=== PATIENT | female | born 1990 | race Caucasian/White ===

== ENCOUNTER → 2019-04-06 02:35 | Observation (INO) ==
[2019-04-06 02:09] LABS: Basophils % 0.4 %; Eosinophils # 0.1 K/mcL (0.0-0.6); Eosinophils % 1.4 %; Hematocrit 37.2 % (35.3-44.9); Hemoglobin 12.8 g/dL (11.5-15.4); Immature Granulocytes % 0.8 % (0-4); Lymphocytes # 1.7 K/mcL (0.6-4.6); Lymphocytes % 16.8 %; Mean Corpuscular HGB Conc 34.4 g/dL (31.6-35.5); Mean Corpuscular Hemoglobin 33.2 pg (28.0-33.3); Mean Corpuscular Volume 96.4 fL (83.0-100.0); Mean Platelet Volume 10.4 fL (9.4-12.4); Monocytes # 0.9 K/mcL (0.0-1.3); Monocytes % 8.3 %; Neutrophils # 7.5 K/mcL (1.6-8.9); Platelet Count 252 K/mcL (140-400); Red Blood Count 3.86 M/mcL (3.82-4.97); Red Cell Distribution Width 12.4 % (11.5-14.5); Segmented Neutrophils % 72.3 %; White Blood Count 10.4 K/mcL (4.3-11.1)
[2019-04-06 02:17] LABS: Amphetamine Screen,Urine Negative ng/mL (Cutoff=1000); Barbiturate Screen,Urine Negative ng/mL (Cutoff=200); Benzodiazepines Screen,Urine Negative ng/mL (Cutoff=200); Cannabinoid Screen,Urine Negative ng/mL (Cutoff = 50); Cocaine Screen,Urine Negative ng/mL (Cutoff= 300); Opiate Screen,Urine Negative ng/mL (Cutoff=300); Phencyclidine Screen,Urine Negative ng/mL (Cutoff=25); Protein/Creatinine Ratio,Urine 0.17 mg/mg (0.00-0.20)
[2019-04-06 02:27] LABS: Alanine Aminotransferase 8 Units/L (7-52); Aspartate Amino Transferase 14 Units/L (13-39); BUN/Creatinine Ratio 13 (6-26); Blood Urea Nitrogen 7 mg/dL (6-20); Lactate Dehydrogenase 154 Units/L (140-271); Uric Acid 4.9 mg/dL (2.3-7.6); eGFR For African Americans > 60 (> 60); eGFR For Non-African Americans > 60 (> 60)
--- NOTE | 2019-04-06 02:33 | OB/GYN Progress Note ---
Date of Encounter: 04/06/19 Time of Encounter: 02:29 - Assessment and Plan (1) 37 weeks gestation of Current Visit: Yes Status: Acute Reactive NST Serial blood pressures normal Pre-E labs normal Discharge home with Pre-E precautions and Labor precautions Follow up in office as scheduled and PRN POC per consult with Dr Rogers (2) NST (non-stress test) reactive Current Visit: Yes Status: Acute Subjective - Subjective Principal diagnosis: Elevated BP at home Interval history: Ms Mendoza is a at roughly 37 weeks gestation that presents to triage after having elevated blood pressures at home this evening. She states that she was not feeling well earlier and that her baby had felt strange all day. She was vague on her symptoms. She states her blood pressure around 11 pm was 140/90 and her repeat an hour later was 160/110. She denies headache, vision changes, epgastric pain, leaking of fluid, vaginal bleeding, and vaginal discharge. She states positive movement. She is seen by Dr Wayne for her care. Antepartum ROS: movement normal, no vaginal bleeding, no contractions Objective - Vital Signs Vital Signs: Intake and Output 04/05/19 04/05/19 04/06/19 15:59 23:59 07:59 Other: Weight 112.2 kg Patient Weight 04/06/19 23:59 Weight 112.2 kg - Exam FHR: category 1 FHR comments: Baseline 110-115 with moderate variability and 15 x 15 accels. No decels. No contractions per palpation, patient report, or toco Abdomen: Present: normal appearance, soft, gravid Uterus: Present: normal. Absent: firm - Labs Labs: Abnormal lab results 0.52 mg/dL (0.60-1.20) L 04/06/19 01:42
== END | disposition home or self-care (01) ==
LOC: 1NENULAB
PROVIDERS: ADMIT Advanced Practice Midwife; ATTEND Advanced Practice Midwife

== ENCOUNTER 2019-04-16 05:43 | Inpatient (IN) ==
[2019-04-16] MEDS ORDERED: Famotidine 20 MG/2 ML VIAL IVP PRN (05:52)
[2019-04-16] MEDS ORDERED: Ondansetron 4 MG/2 ML VIAL IVP PRN (05:52)
[2019-04-16] MEDS ORDERED: *HR* Nalbuphine 10 MG/ML AMPUL IVP PRN (05:52)
[2019-04-16] MEDS ORDERED: Metoclopramide 10 MG/2 ML VIAL IVP PRN (05:52)
[2019-04-16] MEDS ORDERED: Naloxone 0.4 MG/ML INJ IVP PRN (05:52)
[2019-04-16] MEDS ORDERED: Oxytocin 20 units/ LR 1000 mL 20 UNIT/1,000 ML BAG IVC SCH ×2 (06:00→19:55)
[2019-04-16] MEDS ORDERED: Ringers Solution, Lactated 1,000 ML IVC SCH (06:00)
[2019-04-16 06:16] LABS: Basophils % 0.3 %; Eosinophils % 2.4 %; Hematocrit 38.1 % (35.3-44.9); Hemoglobin 12.9 g/dL (11.5-15.4); Immature Granulocytes % 0.6 % (0-4); Lymphocytes % 17.5 %; Mean Corpuscular HGB Conc 33.9 g/dL (31.6-35.5); Mean Corpuscular Hemoglobin 32.7 pg (28.0-33.3); Mean Corpuscular Volume 96.5 fL (83.0-100.0); Mean Platelet Volume 10.1 fL (9.4-12.4); Monocytes % 8.6 %; Platelet Count 249 K/mcL (140-400); Red Blood Count 3.95 M/mcL (3.82-4.97); Red Cell Distribution Width 12.4 % (11.5-14.5); Segmented Neutrophils % 70.6 %; White Blood Count 9.3 K/mcL (4.3-11.1)
[2019-04-16 06:17] LABS: Eosinophils # 0.2 K/mcL (0.0-0.6); Lymphocytes # 1.6 K/mcL (0.6-4.6); Monocytes # 0.8 K/mcL (0.0-1.3); Neutrophils # 6.5 K/mcL (1.6-8.9)
--- NOTE | 2019-04-16 06:25 | Anesthesia Evaluation PreOp ---
Date of Encounter: 04/16/19 Time of Encounter: 06:29 - Past History Planned Operation: Del, 39wk term induction Cardiac History: Denies any Significant Hx Pulmonary History: Denies Any Significant HX PAINT TRIMMER PIPE BOWLS History: Denies Any Significant HX Other Medical History: Other (MO BMI 34, occ sciatic not positionally dependent has improved with .) Anesthesia History: No Prior Anesthetic Complications, Past Anesthesia (previous epidural without comp) Alcohol Use: none Drug use: none Medications and Allergies Ferrous Sulfate 1 tab PO DAILY 04/06/19 [History] Caplet 1 tab PO DAILY 04/06/19 [History] Allergy/AdvReac Type Severity Reaction Status Date / Time No Known Allergies Allergy Verified 04/06/19 01:48 Anesthesia Results - Labs 04/16/19 06:05 Anesthesia Exam - HEENT Pupil (Motor): Pupils equal Mallampati: II Teeth: Normal Oral Opening: Greater than 3 - PAINT TRIMMER PIPE BOWLS LOC: Oriented PAINT TRIMMER PIPE BOWLS Motor: Normal RUE, Normal LUE, Normal RLE, Normal LLE, Normal Face - Cardiac Rhythm: Regular Murmur: None - Pulmonary Breath Sounds: bilateral Clear Respiratory Effort: Symmetrical Anesthesia Assess/Plan ASA Score: 2 Level of consciousness: Cooperative, Oriented Anesthetic Plan: General, Spinal, Epidural Monitoring Plan: Standard Monitors Recovery Plan: PACU
[2019-04-16] MEDS ORDERED: Epidural Premix (fent/bupiv) 110 ML EP SCH (06:30)
--- NOTE | 2019-04-16 08:09 | OB/GYN History & Physical ---
Date of Encounter: 04/16/19 Time of Encounter: 08:07 Assessment and Plan (1) 39 weeks gestation of Current visit: Yes Status: Acute History of Present Illness Chief complaint: induction HPI: Ms. Mendoza is a 29 year old female at 39 weeks who presents to labor and delivery for induction of labor. On presentation she is 3 cm 70% effaced and -2 station. Patient is category 1. She is doing well and without complaints today. She has no drug allergies. Currently on vitamins. She has no chronic medical conditions. Surgical history is negative. She has no history of abnormal Pap smears, STDs or pelvic infections. Socially she denies tobacco, alcohol, illicit drug use. Obstetric history significant for one term vaginal delivery and found located. Family history significant for hypertension, diabetes and mental illness. Past Med Surg Social Fam HX - Past Medical History Additional medical history: PTL Psychiatric history: no psych history - Past Surgical History Surgical History: no surgical history - Social History Smoking Status: Former smoker Smokeless Tobacco Status: No Alcohol use: none Drug use: none - Family History Mother Adopted: No Family Member Ethnicity: Non- Living Status: Still Living Hx Family Cardiac Disorders: Yes Hx Family Respiratory Disorders: No Hx Family Cancer: No Hx Family GI Disorders: No Hx Family Genitourinary Disorders: No Hx Family Endocrine Disorder: No Hx Family Musculoskeletal Disorders: No Hx Family Neuromuscular Disorders: No Hx Family Neurologic Disorders: No Hx Family HEENT Disorders: No Hx Family Autoimmune Disorders: No Hx Family Reproductive Disorders: No Hx Family Psychosocial Disorders: No Hx Family Medical Disorders: No Obstetrical History - Pregnancies : 2 Para: 1 Term: 1 Livin Medications and Allergies Ferrous Sulfate 1 tab PO DAILY 04/06/19 [History] Caplet 1 tab PO DAILY 04/06/19 [History] Allergy/AdvReac Type Severity Reaction Status Date / Time No Known Allergies Allergy Verified 04/06/19 01:48 Review of System OB All systems PM: reviewed and no additional remarkable complaints except as s tated Exam - Constitutional Constitutional: well developed, well nourished, no acute distress, average body habitus - HEENT HEENT: EOMI, PERRL, Normocephaly - Neck Neck exam: full ROM - Lungs Respiratory exam: CTAB - Cardiovascular Cardiovascular exam: RRR - Abdomen Abdomen: Present: bowel sounds normal, gravid, non tender - Extremities Extremities exam: full ROM, normal inspection - Cervix Dilation: 3 Effacement: 70 Station: -2 - Uterus Uterus exam: Present: normal size Results Result Diagrams: 04/16/19 06:05 All other labs normal. - VTE Reasons for not Prescribing Prophylaxis: Treatment not Indicated - Low risk for VTE
[2019-04-16 08:21] LABS: Amphetamine Screen,Urine Negative ng/mL (Cutoff=1000); Barbiturate Screen,Urine Negative ng/mL (Cutoff=200); Benzodiazepines Screen,Urine Negative ng/mL (Cutoff=200); Cannabinoid Screen,Urine Negative ng/mL (Cutoff = 50); Cocaine Screen,Urine Negative ng/mL (Cutoff= 300); Opiate Screen,Urine Negative ng/mL (Cutoff=300); Phencyclidine Screen,Urine Negative ng/mL (Cutoff=25)
--- NOTE | 2019-04-16 10:42 | Event Note ---
Date of Encounter: 04/16/19 Time of Encounter: 10:40 Patient doing well. Contractions every 2-4 minutes. Cervical exam unchanged. I discussed Wu induction with patient. She would like to do this. A 60 mL Wu was placed without difficulty. Patient will continue with Pitocin. Patient wishes epidural. Category 1 tracing.
[2019-04-16] MEDS ORDERED: *HR* FentaNYL (PF) 100 MCG/2 ML VIAL EP ONE (10:46)
[2019-04-16] MEDS ORDERED: Ropivacaine/PF 0.2% 20 ML VIAL EP ONE (10:46)
--- NOTE | 2019-04-16 11:16 | Anesthesia Procedures ---
Date of Encounter: 04/16/19 Time of Encounter: 11:14 Procedures: Anesthesia - Epidural/Spinal Patient ID/Chart reviewed: Yes Patient examined: Yes OB Eval: Gestational age: 39 OB Eval: : 2 OB Eval: Hx Para: 1 OB Eval: Dilated at (cm): 3 OB Eval: Contractions: Non-stressed pattern Consent Obtained: Yes Supplemental Oxygen: None/Room Air Site Prep: Aseptic Technique, Sterile prep and drape, 0.5% Chlorhexidine/Alcohol Patient position: upright Local Anesthetic: Lidocaine 1% Touhy Needle Gauge: 18 Touhy Needle Depth (cm): 7 Catheter Depth at Skin (cm): 15 Test Dose (1.5% Lido + Epi): Volume given (mls): 3 Test Dose Result: Negative Loading Dose: Fentanyl (mcg): 100 Loading Dose: Other: ropivacaine 0.2% 5cc Loading Dose Administered: Thru Touhy Needle Infusion Med: 0.125% Bupivacaine w/ 2 mcg/ml Fentanyl Infusion Rate (mls/hr): 15 (pcea 5cc q30") Catheter Secured in Place: Tegaderm Interspace Used: L2-L3 Loss of Resistance (DOC): Yes Blood: No CSF: No Paresthesia: No Procedure: aseptic, tolerated well, VSS, effective Vitals + FHT's: 143/88 68 16 fht 124
--- NOTE | 2019-04-16 13:15 | Event Note ---
Date of Encounter: 04/16/19 Time of Encounter: 13:14 Patient doing well with epidural. Vaginal exam performed. Wu is now out. Cervix is 7 cm 80% effaced and a 0 to -1 station. Bulging bag of membranes noted. Artificial rupture membranes was performed with clear fluid being noted. Category 1 tracing. We will continue Pitocin. Expectant management
[2019-04-16] MEDS ORDERED: *HR* FentaNYL (PF) 100 MCG/2 ML VIAL ONE (16:27)
[2019-04-16] MEDS ORDERED: Lidocaine/EPI 1:200k 2% PF 20 ML VIAL ONE (16:28)
--- NOTE | 2019-04-16 16:48 | Anesthesia Progress Note ---
Date of Encounter: 04/16/19 Time of Encounter: 16:30 Anesthesia Note - Note Note: 04/16/19 16:46 called to LDR 8 for increasing pain with contractions, 10/10, tearful. Negative aspiration. Dosed with 5ml 2% lidocaine with epi and 100mcg fentanyl over 10 mins. with decreasing pain verbalized. Reports as 4/10, pressure only. VSS and FHTs stable.
--- NOTE | 2019-04-16 17:32 | OB/GYN Procedure Note ---
Delivery - Delivery Date: 04/16/19 Provider: José Miguel Wanye Intrapartum events: none Delivery induction: oxytocin, hicks Delivery augmentation: rupture of membranes Delivery monitor: external FHT, external uterine Anesthesia: epidural Quantitated Blood Loss: 200 - Infant (s) Infant A Delivery Date: 04/16/19 Delivery Time: 17:12 Presentation: vertex Position: TIERNEY Route of delivery: Gender: Female Viability: Viable Pounds: 8 Ounces: 1 Weight Gram: 3.65 kg at 1 minute: 8 at 5 mins: 9 Shoulder Dystocia: not encountered Specimens collected: cord blood Placenta: spontaneous Cord: nuchal cord, 3 umbilical vessels - Repair Episiotomy: none Laceration Description: Periurethral - Complications Delivery complications: none Delivery comments: This patient progressed rapidly to complete and pushing. She had a rapid spontaneous vaginal delivery of a female over an intact perineum. 's head was in the perineum easily. There was a cord around neck which was easily reduced. The rest of the was then delivered with 1 push. Infant cried immediately upon delivery. was passed to nursing in attendance. After 1 minute the cord was clamped cut. Cord blood was obtained. Placenta was then delivered spontaneously and intact. There were cervical, vaginal or perineal lacerations noted. There was a right periurethral lace ration which was repaired with 3-0 Vicryl suture in interrupted fashion. Patient delivered a female infant with a weight of 3650 g, 8 lbs. 1 oz. Apgars are 8 at 1 minute and 9 at 5 minutes. Estimated blood loss is 200 mL. - Disposition Mom disposition: stable in LDR disposition: stable in LDR
[2019-04-16] MEDS ORDERED: Acetaminophen 325 MG TABLET PO PRN (19:55)
[2019-04-16] MEDS ORDERED: Measles/Mumps/Rubella Vacc 0.5 ML VIAL SQ PRN (19:55)
[2019-04-16] MEDS: Ibuprofen 600 MG TABLET PO PRN (21:03)
[2019-04-17 05:50] LABS: Basophils % 0.3 %; Eosinophils # 0.2 K/mcL (0.0-0.6); Hematocrit 38.9 % (35.3-44.9); Hemoglobin 12.9 g/dL (11.5-15.4); Immature Granulocytes % 0.7 % (0-4); Lymphocytes # 1.8 K/mcL (0.6-4.6); Lymphocytes % 16.2 %; Mean Corpuscular HGB Conc 33.2 g/dL (31.6-35.5); Mean Corpuscular Hemoglobin 32.3 pg (28.0-33.3); Mean Corpuscular Volume 97.5 fL (83.0-100.0); Mean Platelet Volume 10.4 fL (9.4-12.4); Monocytes # 0.9 K/mcL (0.0-1.3); Neutrophils # 8.1 K/mcL (1.6-8.9); Platelet Count 237 K/mcL (140-400); Red Blood Count 3.99 M/mcL (3.82-4.97); Red Cell Distribution Width 12.5 % (11.5-14.5); Segmented Neutrophils % 72.8 %; White Blood Count 11.1 K/mcL (4.3-11.1)
[2019-04-17] MEDS: Ibuprofen 600 MG TABLET PO PRN ×2 (05:59→11:59)
[2019-04-17] MEDS ORDERED: Benzocaine/Menthol 56 GM AEROSOL SPRAY TP PRN (08:25)
--- NOTE | 2019-04-17 08:28 | Discharge Summary ---
Date of Encounter: 04/17/19 Time of Encounter: 08:26 - Discharge Diagnosis (1) Vaginal delivery Priority: Primary Status: Acute Comments: S/P Vaginal delivery Day 1 Pain is well controlled Lochia is light and without clots VSS Tolerating regular diet and passing flatus Voiding without difficulty Discharge home today POC per consult with Dr Rogers - Discharge Medications Prescriptions: New Breast Pump [BREAST PUMP] 1 each .ROUTE AD #1 each Docusate [Colace] 100 mg PO BID PRN #30 capsule PRN Reason: Constipation Benzocaine/Menthol Tucker [Dermoplast Tucker] 1 appl TP QID PRN aerosol PRN Reason: See Comments Ibuprofen [Motrin] 600 mg PO Q6HR PRN #30 tablet PRN Reason: Cramping Continued Caplet 1 tab PO DAILY Ferrous Sulfate 1 tab PO DAILY Home Medications: Ferrous Sulfate 1 tab PO DAILY 04/06/19 [History] Caplet 1 tab PO DAILY 04/06/19 [History] Benzocaine/Menthol Tucker [Dermoplast Tucker] 1 appl TP QID PRN aerosol 04/17/19 [Rx] Breast Pump [BREAST PUMP] 1 each .ROUTE AD #1 each 04/17/19 [Rx] Docusate [Colace] 100 mg PO BID PRN #30 capsule 04/17/19 [Rx] Ibuprofen [Motrin] 600 mg PO Q6HR PRN #30 tablet 04/17/19 [Rx] Allergies/Adverse Reactions: Allergy/AdvReac Type Severity Reaction Status Date / Time No Known Allergies Allergy Verified 04/06/19 01:48 Data Procedures and tests throughout hospitalization: Laboratory Tests 04/16/19 04/16/19 04/16/19 06:05 06:05 06:05 WBC 9.3 RBC 3.95 Hgb 12.9 Hct 38.1 MCV 96.5 MCH 32.7 MCHC 33.9 RDW 12.4 Plt Count 249 MPV 10.1 Immature Gran % 0.6 Seg Neutrophils % 70.6 Lymphocytes % 17.5 Monocytes % 8.6 Eosinophils % 2.4 Basophils % 0.3 Neutrophils # 6.5 Lymphocytes # 1.6 Monocytes # 0.8 Eosinophils # 0.2 Basophils # 0.0 Urine Opiates Screen Negative Ur Buprenorphine Scrn Negative Ur Barbiturates Screen Negative Ur Phencyclidine Scrn Negative Ur Amphetamines Screen Negative U Benzodiazepines Scrn Negative Urine Cocaine Screen Negative U Marijuana (THC) Screen Negative Ur Drug Screen Interp See Below Hep Bs Antigen Nonreactive 04/17/19 05:26 WBC 11.1 RBC 3.99 Hgb 12.9 Hct 38.9 MCV 97.5 MCH 32.3 MCHC 33.2 RDW 12.5 Plt Count 237 MPV 10.4 Immature Gran % 0.7 Seg Neutrophils % 72.8 Lymphocytes % 16.2 Monocytes % 8.0 Eosinophils % 2.0 Basophils % 0.3 Neutrophils # 8.1 Lymphocytes # 1.8 Monocytes # 0.9 Eosinophils # 0.2 Basophils # 0.0 Urine Opiates Screen Ur Buprenorphine Scrn Ur Barbiturates Screen Ur Phencyclidine Scrn Ur Amphetamines Screen U Benzodiazepines Scrn Urine Cocaine Screen U Marijuana (THC) Screen Ur Drug Screen Interp Hep Bs Antigen Labs on day of discharge: Labs from last 24 hours 04/17/19 05:26 WBC 11.1 RBC 3.99 Hgb 12.9 Hct 38.9 MCV 97.5 MCH 32.3 MCHC 33.2 RDW 12.5 Plt Count 237 MPV 10.4 Immature Gran % 0.7 Seg Neutrophils % 72.8 Lymphocytes % 16.2 Monocytes % 8.0 Eosinophils % 2.0 Basophils % 0.3 Neutrophils # 8.1 Lymphocytes # 1.8 Monocytes # 0.9 Eosinophils # 0.2 Basophils # 0.0 Date of admission: 04/16/19 05:43 Consults: 04/16/19 19:55 Consult to Customer Service Trainer [CONS] Routine Comment: Vaginal delivery, consult needed Discharging clinician: Sun Valle Anticipated date of discharge: 04/17/19 - Patient Status Disposition: Home, Self-Care Condition: Good Functional capacity at discharge: independent ambulation Overall status at discharge: patient is progressing back to baseline - Discharge Instructions Follow Up With: José Miguel Wayne MD [Partnered Physician] - - Diet and Activity Activity: increase activity as tolerated Diet: regular diet Hospital Course Reason for admission: induction of labor, IUP at term Delivery: Episiotomy: none Laceration: other Other procedures: none complications: none Discharge diagnosis: IUP at term delivered [place] baby: female Time Attestation: Total time spent providing and/or coordinating discharge services: Time Spent: Less than 30 minutes Exam - Constitutional Vitals: Temp Pulse Resp BP Pulse Ox 97.9 F 68 16 135/92 97 04/17/19 05:45 04/17/19 07:00 04/17/19 05:45 04/17/19 07:00 04/17/19 05:45 General appearance IM: cooperative, A&O X 3, pleasant - Respiratory Respiratory exam: Present: CTAB - Cardiovascular Cardiovascular exam IM: Present: RRR, +S1, +S2. Absent: irregular rhythm - GI/Abdominal GI/Abdominal exam IM: normal bowel sounds, soft Incision: dry - Rectal Rectal exam: deferred - Uterine Tone: Firm Uterus Position: At Umbilicus, Midline - Extremities Exam Extremities exam IM: Present: normal capillary refill, normal inspection. Absent: calf tenderness - Neurological Exam Neurological exam: alert, oriented X3
[2019-04-17 08:43] VITALS: BP 134/90
[2019-04-17] MEDS ORDERED: Prenatal Vit/FA 1 EACH TABLET PO SCH (09:00)
[2019-04-17] MEDS ORDERED: Lanolin 7 G OINT...G. TP PRN (17:49)
== END 2019-04-17 17:55 | disposition home or self-care (01) | DRG 807 ==
LOC: 1NENULAB 05:43 → 1NENUOBS 23:04
PROVIDERS: ADMIT Obstetrics & Gynecology; ATTEND Obstetrics & Gynecology